=== PATIENT | male | born 1955 | race Caucasian/White ===

== ENCOUNTER 2023-04-16 16:15 | Emergency (ER) | payer MEDICARE, SELFPAY ==
--- NOTE | ~2023-04-16 | XR_ITS ---
EXAMINATION: XR chest 1V portable Exam Date/Time: 04/16/2023 17:38 CDT HISTORY: Left upper back pain Comparison: None. RESULT: Lines, tubes, and devices: None. Lungs and pleura: Mild senescent change. Minimal streaky bibasilar atelectasis/scar. Cardiomediastinal silhouette: Stable. Other: No acute osseous or upper abdominal finding. IMPRESSION: No acute cardiopulmonary process. Reviewed, dictated and finalized at location K.
--- NOTE | ~2023-04-16 | XR_ITS ---
EXAM: XR shoulder LT min 2V DATE: 04/16/2023 16:38 HISTORY: PAIN TO LEFT SHOULDER NO INJURY . COMPARISON: None available. FINDINGS: Normal mineralization. No fracture or dislocation. No lytic or blastic lesion. 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 Acromial tip enthesopathy. No erosion or periosteal change. Soft tissues within normal limits. IMPRESSION: No acute osseous finding in the left shoulder. Reviewed, dictated and finalized at location K.
[2023-04-16 16:21] VITALS: PULSE 83; RESP 20; TEMP 36.6; O2SAT 99
[2023-04-16 17:05] VITALS: BP 172/101; PULSE 76; RESP 18; O2SAT 97
--- NOTE | 2023-04-16 17:05 | ED.BACK ---
HPI - Back Pain/Injury General Chief Complaint: Back Pain/Injury Stated Complaint: shoulder pain Time Seen by Provider: 04/16/23 17:04 Source: patient History of Present Illness HPI Narrative: 67 years old white female came to the emergency room with a localized pain at the center of the left scapula started around 12 days ago. Was visiting his daughter in [place], and was laying down on the bed and was not comfortable. Few days later started having the symptoms. Pain worse with certain position and certain arm movement, better if he puts his arm above the head. He denies any tingling or numbness or radiation of pain. He denies any fever, chills, nausea, vomiting, chest pain, shortness of breath, back pain or neck pain or Headache Related Data Allergies Allergy/AdvReac Type Severity Reaction Status Date / Time No Known Allergies Allergy Verified 04/16/23 17:04 Review of Systems Review of Systems: All systems reviewed & are unremarkable except as noted in HPI and below Exam Narrative: General appearance: Well-developed, well-nourished Skin: Normal color Head: Normocephalic, nontraumatic Eyes: Clear conjunctiva ENT: Oropharynx normal, ears normal, nose normal Neck: Supple, nontender Chest and respiratory: Airway patent, no respiratory distress, no accessory muscle use Heart: Regular rate/rhythm Abdomen: Soft, nontender, no organomegaly, quiet bowel sounds Vascular: Normal peripheral pulses, normal capillary refill. 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 Date: 04/16/23 Time: 17:43 Vital Signs Vital signs: Vital Signs Temperature 36.6 C 04/16/23 16:21 Pulse Rate 83 04/16/23 16:21 Respiratory Rate 20 04/16/23 16:21 Pulse Oximetry 99 04/16/23 16:21 Oxygen Delivery Room Air 04/16/23 16:21 Temperature 36.6 C 04/16/23 16:21 Pulse Rate 90 04/16/23 17:38 Respiratory Rate 18 04/16/23 17:38 Blood Pressure 176/99 H 04/16/23 17:38 Pulse Oximetry 97 04/16/23 17:38 Oxygen Delivery Room Air 04/16/23 16:21 MDM - Back Pain/Injury MDM Narrative Medical decision making narrative: Patient presents with pain at the left scapula worse with certain movement, probably secondary to changing bed, physical examination showed localized tenderness at the left scapula without any other signs. Differential diagnosis musculoskeletal pain, intrathoracic pathology. Cervical radiculopathy less likely patient does not have any neck pain or numbness or tingling. X-ray left shoulder and chest x-ray showed no acute abnormalities. Patient received ibuprofen and Linn in the ED with remarkable improvement. Patient to be discharged on naproxen and Flexeril and was advised to get some physical therapy. The pt was discharged to home.the pt,s condition upon discharge was fair,education was provided to the pt in reference to the final impression,discharge study results,treatment,prognosis and need for follow up . Differential Diagnosis Differential diagnosis: Likely other (Musculoskeletal pain,) Imaging Data My impression: Impressions Shoulder X-Ray 04/16/23 16:42 IMPRESSION: No acute osseous finding in the left shoulder. Chest X-Ray 04/16/23 17:47 IMPRESSION: No acute cardiopulmonary process. Radiologist's impression: X-ray left shoulder and chest x-ray showed no acute abnormalities Critical Care Time [facility]
[2023-04-16] MEDS: HYDROcodone/acetaminophen (*CRX) 5-325 MG TABLET 1 TAB PO (17:36)
[2023-04-16] MEDS: IBUPROFEN 600 MG TABLET PO (17:37)
[2023-04-16 17:38] VITALS: BP 176/99; PULSE 90; RESP 18; O2SAT 97
[2023-04-16 18:32] VITALS: BP 172/101; PULSE 75; RESP 18; O2SAT 98
== END 2023-04-16 18:38 | disposition home or self-care (01) ==
PROVIDERS: Emergency Provider Emergency Medicine
DX: M54.6 Pain in thoracic spine (principal)
CPT/HCPCS: 71045; 73030; 99284; A9270

== ENCOUNTER 2023-05-16 11:32 | Emergency (ER) | payer MEDICARE, SELFPAY ==
--- NOTE | ~2023-05-16 | XR_ITS ---
EXAMINATION: XR chest 1V portable DATE: 05/16/2023 13:52 INDICATION: Shortness of breath. Numbness to left arm and hand. TECHNIQUE: A single frontal view of the chest was obtained on 2 radiographs. COMPARISON: Chest single view 04/16/2023 FINDINGS: Calcified right lung nodules and calcified right hilar lymph nodes are consistent with old granulomatous disease. There is no pneumonia, pleural effusion, or pneumothorax. The heart size is no rmal. IMPRESSION: 1. No acute cardiopulmonary disease. Reviewed, dictated and finalized at location E.
[2023-05-16 11:44] VITALS: BP 181/97; PULSE 80; RESP 16; TEMP 36.4; O2SAT 99
--- NOTE | 2023-05-16 11:49 | ECG_ITS ---
Measurements Intervals [place] Rate: 74 P: 36 WA: 159 QRS: 74 QRSD: 126 T: 52 QT: 380 QTc: 424 Interpretive Statements SINUS RHYTHM POSSIBLE RIGHT VENTRICULAR CONDUCTION DELAY [RSR (QR) IN V1/V2] BORDERLINE ECG NO PREVIOUS ECG AVAILABLE FOR COMPARISON Electronically Signed On 05-16-2023 12:14:16 CDT by Ugo Simon M.D.
--- NOTE | 2023-05-16 12:52 | ED.GENADULT ---
HPI - General Adult General Chief complaint: Recheck/Abnormal Lab/Rx Stated complaint: left shoulder pain/elevated BP Time Seen by Provider: 05/16/23 13:44 History of Present Illness HPI narrative: Bill Goff is a 67 y/o male without any known PMHx who went to see his PCP this morning for a follow up appointment and was instructed to come here due to his B/P being elevated. Patient denies chest pain/ shortness of breath but reports he has this constant left shoulder pain/aching and left arm aching. Denies vision changes/ headache. Related Data Allergies Allergy/AdvReac Type Severity Reaction Status Date / Time No Known Allergies Allergy Verified 04/16/23 17:04 FOR[facility]LY [facility] Past Medical History Medical History (Updated 05/17/23 @ 00:01 by Markus Thurman) Left shoulder pain Social History Social History (Updated 05/16/23 @ 14:37 by Davin Strickland MD) Smoking status: Never smoker Alcohol intake: never Substance use: never Course Vital Signs Vital signs: Vital Signs Temperature 36.4 C 05/16/23 11:44 Pulse Rate 80 05/16/23 11:44 Respiratory Rate 16 05/16/23 11:44 Blood Pressure 181/97 H 05/16/23 11:44 Pulse Oximetry 99 05/16/23 11:44 Oxygen Delivery Room Air 05/16/23 11:44 Temperature 36.4 C 05/16/23 11:44 Pulse Rate 75 05/16/23 15:02 Respiratory Rate 16 05/16/23 15:02 Blood Pressure 158/101 H 05/16/23 15:02 Pulse Oximetry 100 05/16/23 15:02 Oxygen Delivery Room Air 05/16/23 13:45 Medical Decision Making Vital Signs Vital Signs: Vital Signs Temperature 36.4 C 05/16/23 11:44 Pulse Rate 80 05/16/23 11:44 Respiratory Rate 16 05/16/23 11:44 Blood Pressure 181/97 H 05/16/23 11:44 Pulse Oximetry 99 05/16/23 11:44 Oxygen Delivery Room Air 05/16/23 11:44 Temperature 36.4 C 05/16/23 11:44 Pulse Rate 75 05/16/23 15:02 Respiratory Rate 16 05/16/23 15:02 Blood Pressure 158/101 H 05/16/23 15:02 Pulse Oximetry 100 05/16/23 15:02 Oxygen Delivery Room Air 05/16/23 13:45 Lab Data 05/16/23 12:59 05/16/23 12:59 Labs: Lab Results 05/16/23 Range/Units 12:59 WBC 7.6 (4.5-10.0) K/mm3 RBC 5.38 (4.6-6.20) M/mm3 Hgb 17.1 (14.0-18.0) g/dL Hct 49.2 (42.0-52.0) % MCV 91.4 (80-100) fl MCH 31.8 (26-34) pg MCHC 34.8 (32-36) g/dl RDW 11.5 (11.5-14.5) % Plt Count 255 (150-375) k/mm3 MPV 8.5 (7.4-10.4) fl Immature Gran % (Auto) 0.4 (0-0.5) % Neut % (Auto) 71.6 (45.5-73.1) % Lymph % (Auto) 19.8 (18.3-44.2) % Whitman % (Auto) 5.9 (2.6-8.5) % Eos % (Auto) 1.6 (0-4.4) % Baso % (Auto) 0.7 (0.2-1.2) % Lymph # (Auto) 1.51 (0.9-3.2) K/mm3 Whitman # (Auto) 0.5 (0.1-0.6) K/mm3 Eos # (Auto) 0.1 (0-0.3) K/mm3 Baso # (Auto) 0.1 (0.0-0.1) K/mm3 Abs Immat Gran (auto) 0.03 (0.00-0.031) K/mm3 Absolute Neuts (auto) 5.5 (1.3-6.7) K/mm3 Absolute Nucleated RBC 0.0 (0.0-0.012) K/mm3 Nucleated RBC % 0.0 (0.0-0.2) % Sodium 136 L (137-145) mmol/L Potassium 4.0 (3.4-5.0) mmol/L Chloride 100 (98-107) mmol/L Carbon Dioxide 29 (22-30) mmol/L Anion Gap 7 L (8-16) mmol/L BUN 24 H (9-20) mg/dL Creatinine 1.20 (0.7-1.3) mg/dL Estim Creat Clear Calc 59 ml/min Estimated GFR 60 (59 - ) Glucose 103 (65-110) mg/dL Calcium 9.5 (8.4-10.2) mg/dL Total Bilirubin 1.3 (0.2-1.3) mg/dL AST 42 (17-59) U/L ALT 51 H (6-50) U/L Alkaline Phosphatase 39 (38-126) U/L Troponin I < 0.012 (0.000-0.034) ng/mL Total Protein 9.0 H (6.3-8.2) g/dL Albumin 4.9 (3.5-5.1) g/dL Discharge Plan Discharge Clinical Impression: Hypertension, Left shoulder pain Patient Disposition: Home, Self-Care Condition: Stable Instructions: Antibiotic Form, Hypertension (ED) Additional Instructions: You were seen in the emergency department. Your labs and EKG are nonconcerning for injury to the heart or liver/kidney injury. I r
[2023-05-16 13:10] LABS: Basophils Absolute Auto 0.1 K/mm3 (0.0-0.1); Basophils Percent Auto 0.7 % (0.2-1.2); Eosinophils Absolute Auto 0.1 K/mm3 (0-0.3); Eosinophils Percent Auto 1.6 % (0-4.4); Hematocrit 49.2 % (42.0-52.0); Hemoglobin 17.1 g/dL (14.0-18.0); Immature Granulocyte Absolute 0.03 K/mm3 (0.00-0.031); Immature Granulocyte Percent A 0.4 % (0-0.5); Lymphocytes Absolute Auto 1.51 K/mm3 (0.9-3.2); Lymphocytes Percent Auto 19.8 % (18.3-44.2); Mean Corpuscular HGB Conc 34.8 g/dl (32-36); Mean Corpuscular Hemoglobin 31.8 pg (26-34); Mean Corpuscular Volume 91.4 fl (80-100); Mean Platelet Volume 8.5 fl (7.4-10.4); Monocytes Absolute Auto 0.5 K/mm3 (0.1-0.6); Monocytes Percent Auto 5.9 % (2.6-8.5); Neutrophils Absolute Auto 5.5 K/mm3 (1.3-6.7); Neutrophils Percent Auto 71.6 % (45.5-73.1); Platelet Count Result 255 k/mm3 (150-375); Red Blood Count 5.38 M/mm3 (4.6-6.20); Red Cell Distribution Width 11.5 % (11.5-14.5); White Blood Count 7.6 K/mm3 (4.5-10.0)
[2023-05-16 13:20] LABS: Alanine Aminotransferase 51 U/L (6-50); Albumin Level 4.9 g/dL (3.5-5.1); Alkaline Phosphatase 39 U/L (38-126); Anion Gap 7 mmol/L (8-16); Aspartate Amino Transferase 42 U/L (17-59); Bilirubin,Total 1.3 mg/dL (0.2-1.3); Blood Urea Nitrogen 24 mg/dL (9-20); Calcium 9.5 mg/dL (8.4-10.2); Carbon Dioxide 29 mmol/L (22-30); Chloride 100 mmol/L (98-107); Estimated CRCL calculation 59 ml/min; Estimated Glomerular Filt Rate 60; Glucose 103 mg/dL (65-110); Sodium 136 mmol/L (137-145)
[2023-05-16 13:32] LABS: Troponin I < 0.012 ng/mL (0.000-0.034)
[2023-05-16 13:45] VITALS: PULSE 76; RESP 17; O2SAT 99
[2023-05-16 14:09] VITALS: BP 185/110; PULSE 81; RESP 20; O2SAT 98
[2023-05-16] MEDS: amLODIPine BESYLATE 5 MG TABLET PO (14:10)
--- NOTE | 2023-05-16 14:30 | ED.RECABL ---
HPI - Recheck/Abnormal Lab/Rx General Chief Complaint: Recheck/Abnormal Lab/Rx Stated Complaint: left shoulder pain/elevated BP Time Seen by Provider: 05/16/23 13:44 History of Present Illness HPI narrative: This is a 67-year-old male, who denies past medical history, referred to the emergency department by his primary care doctor for high blood pressure. The patient states approximately 2 weeks ago, he presented with left shoulder pain. He was prescribed medications. He recently returned from a vacation to [place]. Today he presented to his primary care doctor for follow-up, when his blood pressure was noted to be in the 180s over the 110s. He was advised to seek evaluation. Here he complains of some left shoulder pain but has no other complaints. Related Data Allergies Allergy/AdvReac Type Severity Reaction Status Date / Time No Known Allergies Allergy Verified 04/16/23 17:04 Review of Systems Review of Systems: CONSTITUTIONAL: Denies fever, chills, or sweats. CARDIOVASCULAR: Denies chest pain, palpitations, or edema. RESPIRATORY: Denies cough or dyspnea. GASTROINTESTINAL: Denies abdominal pain, nausea, vomiting, or diarrhea. GENITOURINARY: Denies dysuria or hematuria. SKIN: Denies rash or itching. MUSCULOSKELETAL: Left shoulder pain denies back pain, or myalgia. NEUROLOGIC: Denies headache, numbness, dizziness, or weakness. PSYCHIATRIC: Denies anxiety or depression. FOR[facility]LY [facility], [facility] Past Medical History Medical History (Updated 05/17/23 @ 00:01 by Markus Thurman) Left shoulder pain Social History Social History (Updated 05/16/23 @ 14:37 by Davin Strickland MD) Smoking status: Never smoker Alcohol intake: never Substance use: never Exam Narrative: GENERAL: Well-developed, well-nourished, and in no acute distress. HEAD: Normocephalic, atraumatic. EYES: PERRLA and EOMI. CHEST: Clear to auscultation. No respiratory distress. No wheezes rales or rhonchi HEART: Regular rate and rhythm. No murmur heard. Normal peripheral pulses. ABDOMEN: Soft, nontender, nondistended, normal active bowel sounds. EXTREMITIES: Normal range of motion. No edema. SKIN: Warm, dry, no rash. NEURO: Alert and oriented x3. Moving all 4 limbs purposefully. PSYCH: Normal mood and affect. Course Course Emergency Course: 14:20 - EKG not concerning for ischemia. Troponin negative. Labs not concerning for kidney injury. CBC unremarkable. Chest x-ray unremarkable. The patient's blood pressure improved without directed intervention. Will start on a low-dose of amlodipine (5 mg) and recommend primary care follow-up. Discussed return and emergency precautions including signs/symptoms of ACS and hypotension. The patient voiced understanding and is comfortable with the plan. All questions answered to his satisfaction Vital Signs Vital signs: Vital Signs Temperature 97.6 F 05/16/23 11:44 Pulse Rate 80 05/16/23 11:44 Respiratory Rate 16 05/16/23 11:44 Blood Pressure 181/97 H 05/16/23 11:44 Pulse Oximetry 99 05/16/23 11:44 Oxygen Delivery Room Air 05/16/23 11:44 Temperature 97.6 F 05/16/23 11:44 Pulse Rate 75 05/16/23 15:02 Respiratory Rate 16 05/16/23 15:02 Blood Pressure 158/101 H 05/16/23 15:02 Pulse Oximetry 100 05/16/23 15:02 Oxygen Delivery Room Air 05/16/23 13:45 MDM - Recheck/Abnormal Lab/Rx MDM Narrative Medical decision making narrative: Plan: Labs, imaging, EKG, troponin, reassess Differential Diagnosis Differential diagnosis: Likely other (Hypertension, hypertensive emergency, metabolic abnormality, ACS, other) Lab Data 05/16/23 12:59 05/16/23 12:59 Labs: Lab Results 05/16/23 Range/Units 12:59 WBC 7.6 (4.5-10.0) K/mm3 RBC 5.38 (4.6-6.20) M/mm3 Hgb 17.1 (14.0-18.0) g/dL Hct 49.2 (42.0-52.0) % MCV 91.4 (80-100) fl MCH 31.8 (26-34) pg MCHC 34.8 (32-36) g/dl RDW 11.5 (11.5-14.5) % Plt Count 255 (15
[2023-05-16 15:02] VITALS: BP 158/101; PULSE 75; RESP 16; O2SAT 100
== END 2023-05-16 15:04 | disposition home or self-care (01) ==
PROVIDERS: Nurse Practitioner Family; Emergency Provider Preventive Medicine Aerospace Medicine
DX: I10 Essential (primary) hypertension (principal); M25.512 Pain in left shoulder
CPT/HCPCS: 36415; 71045; 80053; 84484; 85025; 93005; 99283; A9270